=== PATIENT | female | born 1945 | race Caucasian/White ===

== ENCOUNTER 2018-12-24 10:01 | Day surgery (SDC) | payer MEDICARE ==
[~2018-12-24] VITALS: Ht 162.6 cm; Wt 60.0 kg
[2018-12-24] MEDS ORDERED: SODIUM CHLORIDE 0.9% 1,000 ML IV SCH (10:54)
[2018-12-24] MEDS ORDERED: DISO150C3 PO (11:00)
[2018-12-24] MEDS ORDERED: IBAN150T PO (11:00)
[2018-12-24] MEDS ORDERED: HYDR-3245 PO (11:00)
[2018-12-24] MEDS ORDERED: CEFAZOLIN PMX 1GM/50ML 50 ML IVPB ONE (11:00)
[2018-12-24] MEDS ORDERED: OMEP-110 PO (11:00)
[2018-12-24] MEDS ORDERED: METO25TA91 PO (11:00)
[2018-12-24] MEDS ORDERED: TRAZ-137 PO (11:00)
[2018-12-24 11:04] LABS: BASOPHILS # (AUTO) 0.01 x10^3/uL (0-0.1); BASOPHILS % (AUTO) 0 % (0-1); EOSINOPHILS # (AUTO) 0.08 x10^3/uL (0-0.4); EOSINOPHILS % (AUTO) 1 % (1-7); LYMPHOCYTES # (AUTO) 1.69 x10^3/uL (1-3.4); LYMPHOCYTES % (AUTO) 26 % (22-44); MD NO; MEAN CORPUSCULAR HEMOGLOBIN 33.3 pg (27.0-34.8); MEAN CORPUSCULAR HGB CONC 33.9 g/dL (32.4-35.8); MEAN CORPUSCULAR VOLUME 98.1 fL (80-100); MEAN PLATELET VOLUME 10.1 fL (7.4-10.4); MONOCYTES # (AUTO) 0.56 x10^3/uL (0.2-0.8); MONOCYTES % (AUTO) 8 % (2-9); NEUTROPHILS # (AUTO) 4.25 x10^3/uL (1.8-6.8); NEUTROPHILS % (AUTO) 64 % (42-75); PLATELET COUNT 136 x10^3/uL (130-400); RED BLOOD COUNT 4.15 x10^6/uL (3.82-5.3); RED CELL DISTRIBUTION WIDTH 13.7 % (9.6-15.2)
[2018-12-24 11:15] LABS: ANION GAP 3 mmol/L (5-15); CHLORIDE 112 mmol/L (98-107); CREATININE 1.03 mg/dL (0.55-1.02)
[2018-12-24] MEDS ORDERED: CEFAZOLIN 1,000 MG ONE (11:51)
[2018-12-24] MEDS ORDERED: MIDAZOLAM 1 MG/ML, 5ML ONE (11:51)
[2018-12-24] MEDS ORDERED: FENTANYL PF 100 MCG/2ML ONE (11:51)
[2018-12-24] MEDS ORDERED: LIDOCAINE 2%, 20ML ONE (11:51)
[2018-12-24] MEDS ORDERED: CEFAZOLIN PMX 1GM/50ML 50 ML ONE (12:14)
[2018-12-24] MEDS ORDERED: HYDROcodone/APAP 10/325 MG TABLET PO ONE (13:30)
== END 2018-12-24 14:34 | disposition home or self-care (01) ==
LOC: CACL 10:01
PROVIDERS: ATTEND Internal Medicine Cardiovascular Disease
DX: Z45.02 Encounter for adjustment and management of automatic implantable cardiac defibrillator (principal); I48.91 Unspecified atrial fibrillation; I42.1 Obstructive hypertrophic cardiomyopathy; I34.0 Nonrheumatic mitral (valve) insufficiency; F17.210 Nicotine dependence, cigarettes, uncomplicated; Z95.810 Presence of automatic (implantable) cardiac defibrillator; Z79.899 Other long term (current) drug therapy
CPT/HCPCS: 33263; 36415; 80048; 85025; 93005; 99156; 99157; C1721; J0690; J2250; J3010; J3490